=== PATIENT | female | born 1950 | race Native Hawaiian/Other Pacific Islander ===

== ENCOUNTER 2016-04-17 13:38 | Emergency (ER) | payer BC ==
[~2016-04-17] VITALS: Ht 165.1 cm; Wt 158.8 kg
[~2016-04-17 13:38] MED LIST: DICLOXACILL250 MG OR; ETHOSUXIMIDE250 MG OR; HUMALOG MI75 MG/25 K SC; HYZAAR1 TA2 PO; LORAZEPAM1 MG OR; PAROXETINE40 MG OR; PHENOBARB97.2 MG OR; TOPAMAX200 MG OR
[2016-04-17 14:23] LABS: PLATELET COUNT 196 K/uL (152-353)
[2016-04-17 14:32] LABS: POTASSIUM 3.2 mmol/L (3.6-5.2); SODIUM 136 mmol/L (136-145)
[2016-04-17 17:14] VITALS: BP 129/55; TEMP 98.8
== END 2016-04-17 17:17 | disposition home or self-care (01) ==
LOC: ED 13:38
DX: S00.83XA Contusion of other part of head, initial encounter (principal); H70.91 Unspecified mastoiditis, right ear; E11.9 Type 2 diabetes mellitus without complications; M17.11 Unilateral primary osteoarthritis, right knee; R00.1 Bradycardia, unspecified; W18.12XA Fall from or off toilet with subsequent striking against object, initial encounter
CPT/HCPCS: 36415; 80053; 83036; 85027; 93005; 96365; 96376; 99284; J2060

== ENCOUNTER 2016-10-19 16:03 | Outpatient (CLI) | payer BC ==
[2016-10-19 16:14] LABS: PLATELET COUNT 245 K/uL (152-353)
[2016-10-19 16:27] LABS: POTASSIUM 3.8 mmol/L (3.6-5.2); SODIUM 139 mmol/L (136-145)
== END 2016-10-19 20:01 | disposition home or self-care (01) ==
LOC: LAB 16:03
PROVIDERS: Internal Medicine
DX: I10 Essential (primary) hypertension (principal); G40.802 Other epilepsy, not intractable, without status epilepticus; Z85.3 Personal history of malignant neoplasm of breast
CPT/HCPCS: 80053; 80184; 83880; 85027

== ENCOUNTER 2016-10-23 15:49 | Outpatient (CLI) | payer BC | END 2016-10-23 19:27 | disposition home or self-care (01) | LOC: LAB 15:49 | DX: G40.802 Other epilepsy, not intractable, without status epilepticus (principal) | CPT/HCPCS: 80184 ==

== ENCOUNTER 2016-11-08 13:19 | Outpatient (CLI) | payer BC | END 2016-11-08 14:20 | disposition home or self-care (01) | LOC: LAB 13:19 | DX: N39.0 Urinary tract infection, site not specified (principal) | CPT/HCPCS: 81000; 87086; 87088 ==

== ENCOUNTER 2016-12-01 09:40 | Outpatient (CLI) | payer BC ==
[2016-12-01 10:08] LABS: PLATELET COUNT 194 K/uL (152-353)
[2016-12-01 10:11] LABS: POTASSIUM 4.1 mmol/L (3.6-5.2); SODIUM 137 mmol/L (136-145)
== END 2016-12-01 10:40 | disposition home or self-care (01) ==
LOC: LAB 09:40
PROVIDERS: Internal Medicine
DX: N39.0 Urinary tract infection, site not specified (principal); E11.9 Type 2 diabetes mellitus without complications; D51.8 Other vitamin B12 deficiency anemias; E55.9 Vitamin D deficiency, unspecified
CPT/HCPCS: 80053; 81000; 82306; 82607; 82746; 85027; 87077; 87086; 87088; 87186

== ENCOUNTER 2017-01-09 11:30 | Outpatient (CLI) | payer BC ==
[2017-01-09 12:42] LABS: PLATELET COUNT 219 K/uL (152-353)
[2017-01-09 13:03] LABS: POTASSIUM 3.4 mmol/L (3.6-5.2); SODIUM 134 mmol/L (136-145)
== END 2017-01-09 19:05 | disposition home or self-care (01) ==
LOC: LABW 11:30
PROVIDERS: Internal Medicine Cardiovascular Disease
DX: I38 Endocarditis, valve unspecified (principal)
CPT/HCPCS: 36415; 80048; 85027; 85651; 87040

== ENCOUNTER 2017-01-28 19:08 | Outpatient (CLI) | payer BC | END 2017-01-28 19:28 | disposition short-term general hospital (02) | LOC: AMB 19:08 | DX: R53.1 Weakness (principal) | CPT/HCPCS: A0425; A0429 ==

== ENCOUNTER 2017-02-16 12:47 | Outpatient (CLI) | payer BC | END 2017-02-16 13:06 | disposition short-term general hospital (02) | LOC: AMB 12:47 | DX: R41.82 Altered mental status, unspecified (principal); R53.1 Weakness | CPT/HCPCS: A0425; A0427 ==

== ENCOUNTER 2017-02-23 14:32 | Inpatient (IN) | payer BC ==
[~2017-02-23] VITALS: Ht 167.6 cm; Wt 107.6 kg
[~2017-02-23 14:32] MED LIST changes: -PAROXETINE40 MG OR; +PAROXETINE40 MG PO
[2017-02-23 16:06] VITALS: BP 154/99; TEMP 98.6; Ht 167.6 cm; Wt 107.6 kg
[2017-02-23 20:49] VITALS: BP 169/73; TEMP 99.5
[2017-02-24 08:00] VITALS: BP 147/71; TEMP 99.3
[2017-02-24 20:00] VITALS: BP 165/63; TEMP 99
[2017-02-25 08:00] VITALS: BP 139/63; TEMP 98.8
[2017-02-25 20:00] VITALS: BP 172/80; TEMP 99
[2017-02-26 08:14] VITALS: BP 188/89; TEMP 98
[2017-02-26 20:00] VITALS: BP 135/75; TEMP 99
[2017-02-27 06:27] LABS: PLATELET COUNT 263 K/uL (152-353)
[2017-02-27 07:05] LABS: POTASSIUM 3.4 mmol/L (3.6-5.2); SODIUM 134 mmol/L (136-145)
[2017-02-27 08:00] VITALS: BP 150/73; TEMP 98
[2017-02-27 20:00] VITALS: BP 149/66; TEMP 99
[2017-02-28 08:16] VITALS: BP 154/58; TEMP 98.1
[2017-02-28 20:00] VITALS: BP 158/95; TEMP 98.6
[2017-03-01 08:00] VITALS: BP 150/89; TEMP 98.2
[2017-03-01 20:00] VITALS: BP 153/69; TEMP 99.2
[2017-03-02 08:00] VITALS: BP 138/69; TEMP 98.6
[2017-03-02 20:00] VITALS: BP 132/57; TEMP 98.5
[2017-03-03 08:00] VITALS: BP 140/62; TEMP 97.5
[2017-03-03 20:00] VITALS: BP 138/71; TEMP 98.6
[2017-03-04 08:00] VITALS: BP 143/67; TEMP 99
[2017-03-04 20:00] VITALS: BP 150/67; TEMP 99.4
[2017-03-05 08:00] VITALS: BP 138/63; TEMP 99
[2017-03-05 20:00] VITALS: BP 147/69; TEMP 98.9
[2017-03-06 08:00] VITALS: BP 120/67; TEMP 98
[2017-03-06 20:00] VITALS: BP 155/73; TEMP 98.7
[2017-03-07 08:00] VITALS: BP 118/59; TEMP 97.8
[2017-03-07 20:00] VITALS: BP 154/77; TEMP 98.4
[2017-03-08 07:54] VITALS: BP 149/72; TEMP 98.4
[2017-03-08 20:00] VITALS: BP 145/75; TEMP 99.3
[2017-03-09 08:07] VITALS: BP 135/68; TEMP 98
[2017-03-09 20:03] VITALS: BP 126/62; TEMP 98.7
[2017-03-10 07:59] VITALS: BP 121/62; TEMP 97.8
[2017-03-10 20:00] VITALS: BP 127/68; TEMP 98.4
[2017-03-11 08:00] VITALS: BP 135/63; TEMP 97.5
[2017-03-11 20:00] VITALS: BP 130/56; TEMP 99.1
[2017-03-12 05:25] LABS: PLATELET COUNT 199 K/uL (152-353)
[2017-03-12 05:37] LABS: POTASSIUM 3.2 mmol/L (3.6-5.2)
[2017-03-12 08:00] VITALS: BP 128/70; TEMP 98.3
[2017-03-12 22:00] VITALS: BP 146/72; TEMP 98.3
[2017-03-13 08:03] VITALS: BP 126/52; TEMP 97.8
[2017-03-13 20:00] VITALS: BP 132/64; TEMP 98.3
[2017-03-14 08:27] VITALS: BP 130/77; TEMP 97.9
[2017-03-14 20:19] VITALS: BP 137/67; TEMP 97.9
[2017-03-15 08:00] VITALS: BP 134/68; TEMP 97.4
[2017-03-15 12:00] VITALS: BP 125/51; TEMP 99.1
[2017-03-15 16:00] VITALS: BP 151/71; TEMP 97.5
[2017-03-15 20:00] VITALS: BP 126/62; TEMP 98.6
[2017-03-16 08:00] VITALS: BP 141/67; TEMP 98
[2017-03-16 20:00] VITALS: BP 172/70; TEMP 97.7
[2017-03-17 08:00] VITALS: BP 136/70; TEMP 98
[2017-03-17 20:00] VITALS: BP 131/62; TEMP 98.9
[2017-03-18 08:00] VITALS: BP 143/62; TEMP 98.6
[2017-03-18 12:00] VITALS: BP 145/66; TEMP 98.7
[2017-03-18 20:00] VITALS: BP 139/72; TEMP 98.8
[2017-03-19 07:49] VITALS: BP 134/72; TEMP 98.3
[2017-03-19 20:08] VITALS: BP 141/81; TEMP 98.5
[2017-03-20 04:56] LABS: PLATELET COUNT 210 K/uL (152-353)
[2017-03-20 05:15] LABS: POTASSIUM 2.9 mmol/L (3.6-5.2); SODIUM 133 mmol/L (136-145)
[2017-03-20 08:00] VITALS: BP 136/62; TEMP 98.3
[2017-03-20 20:00] VITALS: BP 106/52; TEMP 99.5
[2017-03-21 08:00] VITALS: BP 131/56; TEMP 98.3
[2017-03-21 20:00] VITALS: BP 145/58; TEMP 98.5
[2017-03-22 08:00] VITALS: BP 138/72; TEMP 98.8
[2017-03-22 20:00] VITALS: BP 142/90; TEMP 97.9
[2017-03-23 08:00] VITALS: BP 140/60; TEMP 98.7
[2017-03-23 20:00] VITALS: BP 147/62; TEMP 99.8
[2017-03-24 08:00] VITALS: BP 142/62; TEMP 97.7
[2017-03-24 20:00] VITALS: BP 122/75; TEMP 99
[2017-03-25 08:00] VITALS: BP 123/76; TEMP 98.6
[2017-03-25 20:00] VITALS: BP 134/64; TEMP 98
[2017-03-26 08:00] VITALS: BP 119/50; TEMP 98.8
[2017-05-02] MEDS ORDERED: LEVO-T75 MCG PO (07:59)
[2017-05-02] MEDS ORDERED: PHENOBARB97.2 MG PO (08:30)
[2017-05-02] MEDS ORDERED: VIMPAT200 M1 PO (08:30)
[2017-05-02] MEDS ORDERED: FURO20TA67 PO (08:31)
[2017-05-02] MEDS ORDERED: CLOP75TA2 PO (08:31)
[2017-05-02] MEDS ORDERED: POTA10CA3 PO (08:31)
[2017-05-02] MEDS ORDERED: SIMV40TA57 PO (08:31)
[2017-05-02] MEDS ORDERED: ONFI2.5 MG/ML PO (08:32)
[2017-05-02] MEDS ORDERED: LORA1TAB17 PO (08:33)
== END 2017-03-26 13:00 | DRG 556 ==
LOC: MED/SURG 14:32
PROVIDERS: ADMIT Internal Medicine
DX: M62.81 Muscle weakness (generalized) (principal); N39.0 Urinary tract infection, site not specified; G40.802 Other epilepsy, not intractable, without status epilepticus; E11.9 Type 2 diabetes mellitus without complications; I10 Essential (primary) hypertension; G47.39 Other sleep apnea; I50.9 Heart failure, unspecified; R26.81 Unsteadiness on feet; F41.8 Other specified anxiety disorders; W19.XXXA Unspecified fall, initial encounter; Z91.81 History of falling; Y93.89 Activity, other specified; Y92.230 Patient room in hospital as the place of occurrence of the external cause
CPT/HCPCS: 36415; 80053; 81000; 82948; 85027; 96372; J1815

== ENCOUNTER 2017-03-26 13:20 | Inpatient (IN) | payer BC ==
[2017-05-02] MEDS ORDERED: LEVO-T75 MCG PO (07:59)
[2017-05-02] MEDS ORDERED: PHENOBARB97.2 MG PO (08:30)
[2017-05-02] MEDS ORDERED: VIMPAT200 M1 PO (08:30)
[2017-05-02] MEDS ORDERED: SIMV40TA57 PO (08:31)
[2017-05-02] MEDS ORDERED: CLOP75TA2 PO (08:31)
[2017-05-02] MEDS ORDERED: POTA10CA3 PO (08:31)
[2017-05-02] MEDS ORDERED: FURO20TA67 PO (08:31)
[2017-05-02] MEDS ORDERED: ONFI2.5 MG/ML PO (08:32)
[2017-05-02] MEDS ORDERED: LORA1TAB17 PO (08:33)
== END 2017-04-19 11:14 | disposition home or self-care (01) ==
LOC: PAVC 13:20
PROVIDERS: ADMIT Internal Medicine
DX: M62.81 Muscle weakness (generalized) (principal); R26.89 Other abnormalities of gait and mobility; R26.81 Unsteadiness on feet; E11.9 Type 2 diabetes mellitus without complications; L89.322 Pressure ulcer of left buttock, stage 2; F32.89 Other specified depressive episodes; F41.1 Generalized anxiety disorder; G40.802 Other epilepsy, not intractable, without status epilepticus; I10 Essential (primary) hypertension; Z91.81 History of falling
CPT/HCPCS: 36415; 80061; 80184; 81000; 83036; 84443; 87077; 87081; 87086; 87088; 87186

== ENCOUNTER 2017-03-27 17:15 | Outpatient (CLI) | payer BC ==
[2017-05-02] MEDS ORDERED: LEVO-T75 MCG PO (07:59)
[2017-05-02] MEDS ORDERED: VIMPAT200 M1 PO (08:30)
[2017-05-02] MEDS ORDERED: PHENOBARB97.2 MG PO (08:30)
[2017-05-02] MEDS ORDERED: CLOP75TA2 PO (08:31)
[2017-05-02] MEDS ORDERED: POTA10CA3 PO (08:31)
[2017-05-02] MEDS ORDERED: SIMV40TA57 PO (08:31)
[2017-05-02] MEDS ORDERED: FURO20TA67 PO (08:31)
[2017-05-02] MEDS ORDERED: ONFI2.5 MG/ML PO (08:32)
[2017-05-02] MEDS ORDERED: LORA1TAB17 PO (08:33)
== END 2017-03-27 19:12 | disposition home or self-care (01) ==
LOC: LAB 17:15
DX: E03.8 Other specified hypothyroidism (principal); E11.9 Type 2 diabetes mellitus without complications; G40.802 Other epilepsy, not intractable, without status epilepticus
CPT/HCPCS: 80184; 83036; 84443

== ENCOUNTER 2017-03-28 05:48 | Outpatient (CLI) | payer BC ==
[2017-05-02] MEDS ORDERED: LEVO-T75 MCG PO (07:59)
[2017-05-02] MEDS ORDERED: PHENOBARB97.2 MG PO (08:30)
[2017-05-02] MEDS ORDERED: VIMPAT200 M1 PO (08:30)
[2017-05-02] MEDS ORDERED: FURO20TA67 PO (08:31)
[2017-05-02] MEDS ORDERED: CLOP75TA2 PO (08:31)
[2017-05-02] MEDS ORDERED: SIMV40TA57 PO (08:31)
[2017-05-02] MEDS ORDERED: POTA10CA3 PO (08:31)
[2017-05-02] MEDS ORDERED: ONFI2.5 MG/ML PO (08:32)
[2017-05-02] MEDS ORDERED: LORA1TAB17 PO (08:33)
== END 2017-03-28 19:36 | disposition home or self-care (01) ==
LOC: LAB 05:48
PROVIDERS: Internal Medicine
DX: I10 Essential (primary) hypertension (principal); M62.81 Muscle weakness (generalized); N39.0 Urinary tract infection, site not specified; I50.9 Heart failure, unspecified
CPT/HCPCS: 36415; 80061

== ENCOUNTER 2017-05-01 15:14 | Outpatient (CLI) | payer BC ==
[2017-05-02] MEDS ORDERED: LEVO-T75 MCG PO ×2 (07:59)
[2017-05-02] MEDS ORDERED: VIMPAT200 M1 PO ×2 (08:30)
[2017-05-02] MEDS ORDERED: PHENOBARB97.2 MG PO ×2 (08:30)
[2017-05-02] MEDS ORDERED: SIMV40TA57 PO ×2 (08:31)
[2017-05-02] MEDS ORDERED: CLOP75TA2 PO ×2 (08:31)
[2017-05-02] MEDS ORDERED: FURO20TA67 PO ×2 (08:31)
[2017-05-02] MEDS ORDERED: POTA10CA3 PO ×2 (08:31)
[2017-05-02] MEDS ORDERED: ONFI2.5 MG/ML PO ×2 (08:32)
[2017-05-02] MEDS ORDERED: LORA1TAB17 PO ×2 (08:33)
== END 2017-05-01 19:10 | disposition home or self-care (01) ==
LOC: LAB 15:14
DX: N39.0 Urinary tract infection, site not specified (principal)
CPT/HCPCS: 81000; 87077; 87086; 87088; 87186

== ENCOUNTER 2017-05-01 16:15 | Outpatient (CLI) | payer BC ==
[2017-05-02] MEDS ORDERED: LEVO-T75 MCG PO ×2 (07:59)
[2017-05-02] MEDS ORDERED: PHENOBARB97.2 MG PO ×2 (08:30)
[2017-05-02] MEDS ORDERED: VIMPAT200 M1 PO ×2 (08:30)
[2017-05-02] MEDS ORDERED: POTA10CA3 PO ×2 (08:31)
[2017-05-02] MEDS ORDERED: CLOP75TA2 PO ×2 (08:31)
[2017-05-02] MEDS ORDERED: SIMV40TA57 PO ×2 (08:31)
[2017-05-02] MEDS ORDERED: FURO20TA67 PO ×2 (08:31)
[2017-05-02] MEDS ORDERED: ONFI2.5 MG/ML PO ×2 (08:32)
[2017-05-02] MEDS ORDERED: LORA1TAB17 PO ×2 (08:33)
== END 2017-05-01 16:19 | disposition short-term general hospital (02) ==
LOC: AMB 16:15
DX: R56.9 Unspecified convulsions (principal)
CPT/HCPCS: A0425; A0427

== ENCOUNTER 2017-05-01 16:27 | Observation (INO) | payer BC ==
[~2017-05-01] VITALS: Ht 167.6 cm; Wt 111.6 kg
[2017-05-01 16:30] VITALS: BP 102/50; TEMP 98
[2017-05-01 17:30] VITALS: BP 112/58
[2017-05-01 17:35] LABS: PLATELET COUNT 239 K/uL (152-353)
[2017-05-01 17:41] LABS: POTASSIUM 3.7 mmol/L (3.6-5.2)
[2017-05-01 18:30] VITALS: BP 123/61
[2017-05-01 19:40] VITALS: BP 147/79; TEMP 98.6
[2017-05-01 22:00] VITALS: BP 117/68
[2017-05-01 23:00] VITALS: BP 119/96
[2017-05-02] VITALS (23 sets, daily range): BP systolic 97–163; BP diastolic 46–796; TEMP 98.3–98.8; Ht 167.6 cm; Wt 111.6 kg
[2017-05-02 06:13] LABS: PLATELET COUNT 225 K/uL (152-353)
[2017-05-02 06:31] LABS: POTASSIUM 3.4 mmol/L (3.6-5.2)
[2017-05-02] MEDS ORDERED: LEVO-T75 MCG PO ×2 (07:59)
[2017-05-02] MEDS ORDERED: PHENOBARB97.2 MG PO ×2 (08:30)
[2017-05-02] MEDS ORDERED: VIMPAT200 M1 PO ×2 (08:30)
[2017-05-02] MEDS ORDERED: POTA10CA3 PO ×2 (08:31)
[2017-05-02] MEDS ORDERED: SIMV40TA57 PO ×2 (08:31)
[2017-05-02] MEDS ORDERED: FURO20TA67 PO ×2 (08:31)
[2017-05-02] MEDS ORDERED: CLOP75TA2 PO ×2 (08:31)
[2017-05-02] MEDS ORDERED: ONFI2.5 MG/ML PO ×2 (08:32)
[2017-05-02] MEDS ORDERED: LORA1TAB17 PO ×2 (08:33)
[2017-05-03] VITALS (10 sets, daily range): BP systolic 131–185; BP diastolic 56–89; TEMP 98–98.6
== END 2017-05-03 12:20 | disposition home or self-care (01) ==
LOC: ED 16:27 → ICU 18:00
DX: G40.89 Other seizures (principal); E66.8 Other obesity; E11.9 Type 2 diabetes mellitus without complications; N39.0 Urinary tract infection, site not specified; B96.1 Klebsiella pneumoniae [K. pneumoniae] as the cause of diseases classified elsewhere
CPT/HCPCS: 36415; 80053; 80184; 81000; 82962; 85027; 87077; 87086; 87088; 87186; 93005; 94760; 96365; 96374; 96375; 99220; 99285; G0378; J0696; J1200; J1650; J2060; J3490

== ENCOUNTER 2017-05-23 14:33 | Outpatient (CLI) | payer BC ==
[~2017-05-23 14:33] MED LIST changes: +CLOP75TA2 PO; +FURO20TA67 PO; +LEVO-T75 MCG PO; +LORA1TAB17 PO; +ONFI2.5 MG/ML PO; +PHENOBARB97.2 MG PO; +POTA10CA3 PO; +SIMV40TA57 PO; +VIMPAT200 M1 PO
== END 2017-05-23 21:48 | disposition home or self-care (01) ==
LOC: LAB 14:33
DX: N39.0 Urinary tract infection, site not specified (principal); R30.0 Dysuria
CPT/HCPCS: 81000; 87077; 87086; 87088; 87186

== ENCOUNTER 2017-05-26 06:51 | Outpatient (CLI) | payer BC ==
[2017-05-26] MEDS ORDERED: CLOPIDOGREL75 MG PO (13:08)
[2017-05-26] MEDS ORDERED: ONFI2.5 MG/ML PO (13:18)
[2017-05-26] MEDS ORDERED: LEVO0.0723 PO (15:46)
[2017-05-26] MEDS ORDERED: PHENOBARB97.2 MG PO ×3 (15:51→15:54)
[2017-05-26] MEDS ORDERED: VIMPAT200 M1 PO (15:56)
[2017-05-26] MEDS ORDERED: FURO20TA67 PO (15:56)
[2017-05-26] MEDS ORDERED: SIMV40TA57 PO (15:58)
[2017-05-26] MEDS ORDERED: HYZAAR1 TA2 PO (15:59)
[2017-05-26] MEDS ORDERED: POT CHLORIDE10 MEQ PO (16:01)
[2017-05-26] MEDS ORDERED: [UNRECOGNIZED DRUG - OTHER] PO (16:02)
== END 2017-05-26 06:56 | disposition short-term general hospital (02) ==
LOC: AMB 06:51
DX: R56.9 Unspecified convulsions (principal)
CPT/HCPCS: A0425; A0427

== ENCOUNTER 2017-05-26 07:00 | Observation (INO) | payer BC ==
[~2017-05-26] VITALS: Ht 167.6 cm; Wt 109.4 kg
[2017-05-26] VITALS (17 sets, daily range): BP systolic 87–189; BP diastolic 52–104; TEMP 97.8–99; Ht 167.6 cm; Wt 109.4 kg
[2017-05-26 07:50] LABS: PLATELET COUNT 207 K/uL (152-353)
[2017-05-26 08:07] LABS: POTASSIUM 3.7 mmol/L (3.6-5.2); SODIUM 135 mmol/L (136-145)
--- NOTE | 2017-05-26 10:30 | NUR ---
66 YEAR OLD FEMALE ADMITTED TO PCU 1 VIA STRETCHER FROM ER ADMITTED TO DR [facility]. DX UTI AND SEIZURES. PATIENT MOVED TO PCU BED. PT CHANGED INC URINE FOUL SMELL. PT CLEANED UP KAYKAY CARE DONE. NOTED STAGE 1 PRESSURE ULCER LEFT UPPER BUTTOCK. SKIN IS NOT BROKEN. DARK PINK COLOR WILL POSITION PT OFF LEFT SIDE WITH PILLOWS. PT'S FAMILY HERE. ORIENTED TO PCU. PT DROWSY RECIEVED ATIVAN AT HOME AND IN ER FOR SEIZURE ACTIVITY.
--- NOTE | 2017-05-26 12:59 | NUR ---
PT RESTING QUIETLY EYES CLOSED OCCASIONAL RIGHT ARM JERK TWITCH. FAMILY STATES THAT ITS HER SEIZURE, BUT ISN'T BAD. WILL CONTINUE TO MONITOR.
[2017-05-26] MEDS ORDERED: CLOPIDOGREL75 MG PO (13:08)
[2017-05-26] MEDS ORDERED: ONFI2.5 MG/ML PO (13:18)
--- NOTE | 2017-05-26 13:25 | NUR ---
PATIENT REPORT RECIEVED FROM APOORVA LOYA RN
[2017-05-26] MEDS ORDERED: LEVO0.0723 PO (15:46)
[2017-05-26] MEDS ORDERED: PHENOBARB97.2 MG PO ×3 (15:51→15:54)
[2017-05-26] MEDS ORDERED: FURO20TA67 PO (15:56)
[2017-05-26] MEDS ORDERED: VIMPAT200 M1 PO (15:56)
[2017-05-26] MEDS ORDERED: SIMV40TA57 PO (15:58)
[2017-05-26] MEDS ORDERED: HYZAAR1 TA2 PO (15:59)
[2017-05-26] MEDS ORDERED: POT CHLORIDE10 MEQ PO (16:01)
[2017-05-26] MEDS ORDERED: [UNRECOGNIZED DRUG - OTHER] PO (16:02)
[2017-05-27] VITALS (17 sets, daily range): BP systolic 123–187; BP diastolic 54–91; TEMP 98.6–98.9
[2017-05-27 04:41] LABS: PLATELET COUNT 198 K/uL (152-353)
[2017-05-27 05:52] LABS: POTASSIUM 3.7 mmol/L (3.6-5.2)
--- NOTE | 2017-05-27 06:10 | NUR ---
05/26/17 0600 PATIENT RESTED WELL DURING THE NIGHT, NO SEIZURE ACTIVITY NOTED.
--- NOTE | 2017-05-27 09:00 | NUR ---
PT TURNED AND REPOSITIONED EVERY 2 HOURS, PT HAS STAGE ONE PRESSURE ULCER ON LEFT UPPER BUTTOCKS. NO BREAK DOWN OR OPEN AREA NOTED AREA NOTED TO BE PURPLE/PINK IN COLOR. FOUL SMELLING URINE, KAYKAY CARE AND PT BATH PREFORMED.
--- NOTE | 2017-05-27 10:00 | NUR ---
PT'S AT BEDSIDE PT SITTING UP IN BED EATING BREAKFAST, PT TOOK MEDS WELL. NO SEIZURE ACTIVITY NOTED THIS AM
--- NOTE | 2017-05-27 10:00 | NUR ---
PT UP OUT OF BED TO BED SIDE COMMODE TO URINATE. PT TOLERATED WELL, PT UNSTEADY ON FEET
--- NOTE | 2017-05-27 12:00 | NUR ---
PT UP IN BED VISITNG WITH FAMILY
--- NOTE | 2017-05-27 15:25 | NUR ---
PT UP IN BED WATCHING TV
--- NOTE | 2017-05-27 16:00 | NUR ---
PTS FAMILY AT BEDSIDE
--- NOTE | 2017-05-27 17:17 | NUR ---
PT RESTING IN BED WATCHING TV NAD NOTED. NO SEIZURE ACTIVITY OBSERVED THIS SHIFT. WILL CONTINUE TO MONITOR PT. NO DISTRESS NOTED
--- NOTE | 2017-05-27 23:47 | NUR ---
PT UOB WITH ASSISTANCE TO BSC. PT VOIDED 800 ML OF YELLOW URINE. PT WITH IMPROVED STRENGTH IN LAST 24 HOURS. NO COMPLAINTS VOICED. BACK TO BED WITH ONLY SUPERVISION. ASSISTED PT WITH REPOSITIONING. PT STATES, "I FEEL MUCH BETTER".
[2017-05-28] VITALS: BP 173/70
[2017-05-28 01:00] VITALS: BP 173/70
[2017-05-28 02:00] VITALS: BP 155/62
[2017-05-28 03:00] VITALS: BP 154/52
--- NOTE | 2017-05-28 03:56 | NUR ---
PT CONTINUES TO REST QUIETLY. NO S/SX OF SEIZURE ACTIVITY NOTED.
[2017-05-28 06:28] LABS: PLATELET COUNT 174 K/uL (152-353)
[2017-05-28 07:00] VITALS: BP 155/61; TEMP 99
[2017-05-28 07:18] LABS: POTASSIUM 3.8 mmol/L (3.6-5.2)
--- NOTE | 2017-05-28 08:00 | NUR ---
AM ASSESSEMENT DONE. PT TURNED AND REPOSITIONED IN BED, PT INC OF URINE. ASSIST WITH CLEAN UP. PT HAS BEEN RESTING ON HER SIDE RED AREA TO BUTTOCKS IMPROVED. UP IN BED FOR BREAKFAST. EDUARDO RAMIREZ POLITICAL ANALYST AND DR FORRESTER STOPPED BY THIS AM CHECKED PT.
[2017-05-28 09:00] VITALS: BP 159/57
--- NOTE | 2017-05-28 10:00 | NUR ---
RECIEVED AM MEDS PAULINA WELL STATES FEELING WELL NO SEIZURE ACTIVITY NOTED. PT UNABLE TO GET OUT OF BED FAST ENOUGH TO GET TO BSC. VOIDED IN BED ASSIST WITH CLEAN UP. PT OOB TO CHAIR. EDUARDO RAMIREZ HEALTHCARE ACCOUNT MANAGER VISITED TALKED WITH PT AND . PT TO BE DISCHARGED HOME THIS AM. FAMILY LEFT TO GO AND GET CLOTHS. PT UP SITTING IN CHAIR.
[2017-05-28] MEDS ORDERED: MACROBID100 MG OR (10:30)
--- NOTE | 2017-05-28 10:49 | NUR ---
RECIEVED ORDERS FOR DISCHARGE REMOVED IV LEFT WRIST CATH INTACT NO REDNESS NO SWELLING AT SITE.
--- NOTE | 2017-05-28 11:45 | NUR ---
PT'S HERE. CHECKED BLOOD SUGAR 177, PT STATED" I WILL TAKE MY INSULIN WHEN I GET HOME". ALSO STATED THAT HE WOULD GIVE INSULIN AT HOME. REVIEWED DISCHARGE ORDERS. PT RECIEVED HOME MEDS. PENNIE HOLBROOK RN STOPPED BY REVIEWED WITH PT AND HER ABOUT HER NEW MED FOR THE UTI INFECTION. ALSO ABOUT ESBL ORGANISM AND GOOD HAND WASHING. RECIEVED INFORMATION SHEET. PT DRESSED ASSIST TO W/C DISCHARGED TO PRIVATE CAR TO GO HOME. NO COMPLAINTS VOICED.
== END 2017-05-28 11:45 | disposition home or self-care (01) ==
LOC: ED 07:00 → ICU 09:40
PROVIDERS: Specialist
DX: N39.0 Urinary tract infection, site not specified (principal); B96.20 Unspecified Escherichia coli [E. coli] as the cause of diseases classified elsewhere; G40.802 Other epilepsy, not intractable, without status epilepticus; E11.9 Type 2 diabetes mellitus without complications; E03.8 Other specified hypothyroidism; I10 Essential (primary) hypertension; I50.9 Heart failure, unspecified; R30.0 Dysuria
CPT/HCPCS: 36415; 36600; 80053; 80184; 81000; 82805; 82962; 83605; 83735; 84100; 84484; 85027; 87077; 87086; 87088; 87186; 93005; 96365; 96372; 96374; 96375; 96376; 99220; 99285; G0378; J0690; J1650; J1885; J2060; J3490; J7120

== ENCOUNTER 2017-06-25 14:12 | Outpatient (CLI) | payer BC ==
[~2017-06-25 14:12] MED LIST changes: +CLOPIDOGREL75 MG PO; +LEVO0.0723 PO; +MACROBID100 MG OR; +POT CHLORIDE10 MEQ PO; +[UNRECOGNIZED DRUG - OTHER] PO
== END 2017-06-25 21:50 | disposition home or self-care (01) ==
LOC: LAB 14:12
DX: N39.498 Other specified urinary incontinence (principal); N39.0 Urinary tract infection, site not specified
CPT/HCPCS: 81000; 87077; 87086; 87088; 87186

== ENCOUNTER 2017-08-22 15:03 | Outpatient (CLI) | payer BC | END 2017-08-22 21:48 | disposition home or self-care (01) | LOC: LAB 15:03 | DX: N39.0 Urinary tract infection, site not specified (principal) | CPT/HCPCS: 81000 ==

== ENCOUNTER 2017-12-06 19:40 | Emergency (ER) | payer BC ==
[~2017-12-06] VITALS: Ht 167.6 cm; Wt 115.7 kg
[2017-12-06 22:07] VITALS: BP 135/80; TEMP 98.5
== END 2017-12-06 22:09 | disposition home or self-care (01) ==
LOC: ED 19:40
DX: S30.0XXA Contusion of lower back and pelvis, initial encounter (principal); W18.39XA Other fall on same level, initial encounter; Y93.89 Activity, other specified; Y92.012 Bathroom of single-family (private) house as the place of occurrence of the external cause
CPT/HCPCS: 96372; 99283; J1885

== ENCOUNTER 2018-01-30 14:44 | Outpatient (CLI) | payer BC | END 2018-01-30 14:48 | disposition short-term general hospital (02) | LOC: AMB 14:44 | DX: G40.89 Other seizures (principal) | CPT/HCPCS: A0425; A0427 ==

== ENCOUNTER 2018-01-30 14:56 | Emergency (ER) | payer BC ==
[~2018-01-30] VITALS: Ht 167.6 cm; Wt 115.7 kg
[2018-01-30 15:46] LABS: PLATELET COUNT 95 K/uL (152-353)
[2018-01-30 15:53] LABS: POTASSIUM 3.9 mmol/L (3.6-5.2)
[2018-01-30 18:50] VITALS: BP 148/76; TEMP 98
== END 2018-01-30 18:50 | disposition home or self-care (01) ==
LOC: ED 14:56
PROVIDERS: Emergency Medicine
PROC: 0T9B70Z Drainage of Bladder with Drainage Device, Via Natural or Artificial Opening (ICD-10-PCS; principal; 2018-01-30)
DX: R56.9 Unspecified convulsions (principal)
CPT/HCPCS: 36415; 51702; 80053; 81000; 85027; 96374; 99284; J2060

== ENCOUNTER 2018-02-18 15:24 | Outpatient (CLI) | payer BC | END 2018-02-18 20:37 | disposition home or self-care (01) | LOC: LAB 15:24 | DX: R53.83 Other fatigue (principal); R30.0 Dysuria; Z79.899 Other long term (current) drug therapy | CPT/HCPCS: 81000; 87077; 87086; 87088; 87186 ==

== ENCOUNTER 2018-02-19 11:53 | Outpatient (CLI) | payer BC ==
[2018-02-19 12:15] LABS: PLATELET COUNT 178 K/uL (152-353)
[2018-02-19 12:29] LABS: POTASSIUM 4.1 mmol/L (3.6-5.2)
== END 2018-02-19 21:29 | disposition home or self-care (01) ==
LOC: LAB 11:53
PROVIDERS: Nurse Practitioner Family
DX: Z79.899 Other long term (current) drug therapy (principal); R53.83 Other fatigue
CPT/HCPCS: 80053; 80184; 85027

== ENCOUNTER 2018-03-14 10:54 | Outpatient (CLI) | payer BC | END 2018-03-14 20:35 | disposition home or self-care (01) | LOC: LAB 10:54 | DX: N39.0 Urinary tract infection, site not specified (principal) | CPT/HCPCS: 81000 ==

== ENCOUNTER 2018-04-26 13:37 | Outpatient (CLI) | payer BC | END 2018-04-26 22:40 | disposition home or self-care (01) | LOC: LAB 13:37 | DX: N39.0 Urinary tract infection, site not specified (principal) | CPT/HCPCS: 81000 ==

== ENCOUNTER 2018-05-13 10:50 | Outpatient (CLI) | payer BC | END 2018-05-13 20:02 | disposition home or self-care (01) | LOC: LAB 10:50 | DX: N39.0 Urinary tract infection, site not specified (principal) | CPT/HCPCS: 81000; 87077; 87086; 87088; 87186 ==

== ENCOUNTER 2018-05-14 19:35 | Outpatient (CLI) | payer BC | END 2018-05-14 19:55 | disposition short-term general hospital (02) | LOC: AMB 19:35 | DX: G40.89 Other seizures (principal) | CPT/HCPCS: A0425; A0427 ==

== ENCOUNTER 2018-05-23 12:30 | Inpatient (IN) | payer BC ==
[~2018-05-23] VITALS: Ht 167.6 cm; Wt 109.3 kg
[2018-05-23 14:17] VITALS: BP 151/62; TEMP 98; Ht 167.6 cm; Wt 109.3 kg
[2018-05-23 15:41] LABS: PLATELET COUNT 259 K/uL (152-353)
[2018-05-23 16:24] LABS: POTASSIUM 4.2 mmol/L (3.6-5.2)
[2018-05-23 20:00] VITALS: BP 140/55; TEMP 98.6
[2018-05-24 08:00] VITALS: BP 145/60; TEMP 99.3
[2018-05-24 20:00] VITALS: BP 152/65; TEMP 99.2
[2018-05-25 20:00] VITALS: BP 136/53; TEMP 98.4
[2018-05-26 08:00] VITALS: BP 135/49; TEMP 98.2
[2018-05-26 20:00] VITALS: BP 123/63; TEMP 98.2
[2018-05-27 08:00] VITALS: BP 143/48; TEMP 97.6
[2018-05-27 20:00] VITALS: BP 112/82; TEMP 98
[2018-05-28 08:00] VITALS: BP 127/54; TEMP 98.1
[2018-05-28 20:20] VITALS: BP 137/78; TEMP 98
[2018-05-29 08:00] VITALS: BP 132/52; TEMP 98.1
[2018-05-29 20:00] VITALS: BP 121/59; TEMP 98.9
[2018-05-30 08:00] VITALS: BP 132/60; TEMP 98.3
[2018-05-30 20:00] VITALS: BP 12/61; TEMP 97.3
[2018-05-31 08:13] VITALS: BP 121/52; TEMP 98
[2018-05-31 20:10] VITALS: BP 124/80; TEMP 98
[2018-06-01 10:08] VITALS: BP 139/61; TEMP 97.6
[2018-06-01 20:15] VITALS: BP 147/64; TEMP 99.1
[2018-06-02 08:00] VITALS: BP 151/64; TEMP 98.1
[2018-06-02 20:00] VITALS: BP 141/60; TEMP 98
[2018-06-03 20:00] VITALS: BP 138/56; TEMP 98.2
[2018-06-04 08:00] VITALS: BP 128/569; TEMP 98.3
[2018-06-04 20:00] VITALS: BP 124/52; TEMP 97.3
[2018-06-05 08:00] VITALS: BP 141/63; TEMP 97.4
[2018-06-05 20:00] VITALS: BP 139/65; TEMP 97.5
[2018-06-06 08:00] VITALS: BP 134/56; TEMP 97.6
[2018-06-06 20:00] VITALS: BP 155/57; TEMP 98.5
[2018-06-07 08:00] VITALS: BP 143/62; TEMP 97.6
[2018-06-07 20:00] VITALS: BP 113/70; TEMP 98.3
[2018-06-08 08:00] VITALS: BP 137/49; TEMP 97.4
[2018-06-08 20:00] VITALS: BP 137/55; TEMP 97.9
[2018-06-09 08:00] VITALS: BP 166/62; TEMP 97.6
[2018-06-09 20:00] VITALS: BP 150/50; TEMP 98.7
[2018-06-10 08:00] VITALS: BP 111/63; TEMP 98.1
[2018-06-10 20:00] VITALS: BP 133/60; TEMP 98.2
[2018-06-11 08:00] VITALS: BP 130/60; TEMP 97.9
[2018-06-11 20:00] VITALS: BP 105/71; TEMP 99.1
[2018-06-12 08:06] VITALS: BP 117/66; TEMP 98.5
[2018-06-12 20:00] VITALS: BP 130/52; TEMP 98.8
[2018-06-13 08:00] VITALS: BP 149/60; TEMP 98.5
[2018-06-13 20:00] VITALS: BP 136/58; TEMP 98.5
[2018-06-14 08:00] VITALS: BP 161/49; TEMP 98
[2018-06-14 20:00] VITALS: BP 132/57; TEMP 98.7
[2018-06-15 08:00] VITALS: BP 153/59; TEMP 98.4
[2018-06-15 20:00] VITALS: BP 138/53; TEMP 98.5
[2018-06-16 08:00] VITALS: BP 156/56; TEMP 98.1
[2018-06-16 20:01] VITALS: BP 150/64; TEMP 98.6
[2018-06-17 08:00] VITALS: BP 142/46; TEMP 97.3
[2018-06-17 20:00] VITALS: BP 130/49; TEMP 98.7
[2018-06-18 08:00] VITALS: BP 151/61; TEMP 98.2
[2018-06-18 20:00] VITALS: BP 130/57; TEMP 97.7
[2018-06-19 08:00] VITALS: BP 145/64; TEMP 98.3
[2018-06-19 20:00] VITALS: BP 140/54; TEMP 98.3
[2018-06-20 08:00] VITALS: BP 145/51; TEMP 97.4
[2018-06-20 20:00] VITALS: BP 123/50; TEMP 98.8
[2018-06-21 08:00] VITALS: BP 153/61; TEMP 97.9
== END 2018-06-21 10:20 | disposition home or self-care (01) | DRG 556 ==
LOC: MED/SURG 12:30
PROVIDERS: ADMIT Internal Medicine
DX: M62.81 Muscle weakness (generalized) (principal); G40.802 Other epilepsy, not intractable, without status epilepticus; I10 Essential (primary) hypertension; E11.9 Type 2 diabetes mellitus without complications; K21.9 Gastro-esophageal reflux disease without esophagitis; E78.49 Other hyperlipidemia; F41.8 Other specified anxiety disorders
CPT/HCPCS: 80053; 80184; 80339; 81000; 85027; J1642; J2060

== ENCOUNTER 2018-10-03 04:57 | Outpatient (CLI) | payer BC | END 2018-10-03 05:16 | disposition short-term general hospital (02) | LOC: AMB 04:57 | DX: R56.9 Unspecified convulsions (principal) | CPT/HCPCS: A0425; A0427 ==

== ENCOUNTER 2022-12-19 15:37 | Outpatient (CLI) | payer OTHER | END 2022-12-19 19:43 | disposition home or self-care (01) | LOC: LAB 15:37 | PROVIDERS: ATTEND Internal Medicine | DX: R09.89 Other specified symptoms and signs involving the circulatory and respiratory systems (principal); R50.9 Fever, unspecified; R05.9 Cough, unspecified | CPT/HCPCS: 87502 ==